=== PATIENT | male | born 1960 ===

== ENCOUNTER 2018-12-29 14:23 | Observation (INO) | payer OTHER ==
[2018-12-29] MEDS ORDERED: Sodium Chloride 0.9% 1,000 ML IV ONE ×3 (15:00→17:11)
--- NOTE | 2018-12-29 15:35 | ED PDOC ---
HPI: General Adult Time Seen by Provider: 12/29/18 14:58 Chief Complaint (Nursing): Flu-like Symptoms Chief Complaint (Provider): Fever, Cough History Per: Patient, Home Care Provider (hector [id number]) History/Exam Limitations: no limitations Onset/Duration Of Symptoms: Days Have you had recent travel within the past 21 days to any of the following countries: [place], [place], [place] or [place]?: No Current Symptoms Are (Timing): Still Present Severity: Moderate Recently: Treated By A Physician Additional Complaint(s): 58 yo M with history of asthma and HTN, presents with 3 days of fever, cough productive of white phlegm, nasal congestion, sore throat, bodyaches, headaches for 3 days. Pt saw his PMD 2 weeks ago for similar symptoms, he was prescribed what he thinks was an antibiotic, started to feel better and stopped taking the medication. His symptoms returned 3 days ago. Pt reports chest pain today that comes and goes, especially with coughing. Also states that he took Advil today at 11am, and his stomach started to hurt. Pain is all over his stomach associated with nausea. He has also had multiple episodes of loose stool today. He also continues to have a headache, fever and body aches. Pt's relative is sick with similar symptoms at home as well. Denies recent travel. Pt used his inhaler yesterday but otherwise has not had the need for it. Denies vomiting, urinary symptoms, recent travel, difficulty breathing, leg pain or swelling. PMD: Dr. Ann Past Medical History Vital Signs: Last Vital Signs Temp 101.2 F H 12/29/18 14:26 Pulse 108 H 12/29/18 14:26 Resp 16 12/29/18 14:26 BP 126/67 12/29/18 14:26 Pulse Ox 97 12/29/18 14:26 - Medical History PMH: Asthma, HTN - Surgical History Surgical History: Hernia Repair Other surgeries: foot surgery, open heart surgery - Family History Family History: States: Diabetes, Hypertension - Living Arrangements Living Arrangements: With Family - Social History Current smoker - smoking cessation education provided: No Alcohol: None Drugs: Denies - Allergies Allergies/Adverse Reactions: Allergies Allergy/AdvReac Type Severity Reaction Status Date / Time No Known Allergies Allergy Verified 12/29/18 14:29 Review of Systems Constitutional: Positive for: Fever, Chills Respiratory: Positive for: Cough Gastrointestinal: Positive for: Nausea, Abdominal Pain Physical Exam - Physical Exam Comments: GENERAL APPEARANCE: Patient is awake, alert, oriented x 3, mild obvious discomfort SKIN: Warm, dry; (-) cyanosis, (-) rash. (-) Decubitus Ulcer EYES: (-) conjunctival pallor, (-) scleral icterus, (-) conjunctival hemorrhage. ENMT: Mucous membranes _moist. TMs: (-) erythema. Airway patent: (-)trismus (-) stridor. Pharynx: (+) mild erythema, (-) exudate, Tonsils: (-) enlargement (- )exudates NECK: (-) tenderness, (-) stiffness, (-) meningismus, (-) lymphadenopathy. CHEST AND RESPIRATORY: (-) rash, (-) chest wall tenderness. Lungs: (-) rales, (- ) rhonchi, (-) wheezes, (-) rub; breath sounds equal bilaterally. HEART AND CARDIOVASCULAR: (-) irregularity; (-) murmur, (-) gallop, (-) rub. ABDOMEN AND GI: Soft; normal bowel sounds, (+) mild diffuse tenderness, (-) guarding; (-) organomegaly; (-) mass; (-) CVA tenderness. EXTREMITIES: (-) deformity; (-) cellulitis, (-) lymphangitis; (-) subungual hemorrhage; (-) edema. NEURO AND PSYCH: Mental status as above; (-) focal findings. - Laboratory Results Result Diagrams: 12/29/18 15:40 12/29/18 15:40 - ECG O2 Sat by Pulse Oximetry: 97 Medical Decision Making Medical Decision Makin:00 initial evaluation, 58yo M h/o HTN and asthma presenting with flu like symptoms, febrile and tachycardia, known sick contact, likely flu vs pneumonia * CBC, CMP, Lipase * IVF * Tylenol PO, Zofran PO * EKG * CXR * rapid flu and step * re eval 16:16 Pt's EKG showing right bundle branch block, no comparison found, reviewed by Dr. 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 Duggan, who accepts pt to be put in observation re eval pt states feeling a little better but continues with occasional chest pain when coughing pt continues to be febrile as per last results, HR is now in 80s, will recheck temp will treat with toradol and iVF Have not heard back from Dr. Anderson, do not have ekg comparison Disposition - Clinical Impression Clinical Impression: Influenza, Acute electrocardiogram changes - Patient ED Disposition Is Patient to be Admitted: Yes Doctor Will See Patient In The: Hospital Counseled Patient/Family Regarding: Studies Performed, Diagnosis - Disposition Disposition Time: 17:10 Condition: STABLE Forms: [employer] (Yakut) - Pt Status Changed To: Hospital Disposition Of: Observation - POA Present On Arrival: None
[2018-12-29 15:53] LABS: BASO % 0.6 % (0.0-2.0); EOS # 0.2 K/uL (0.0-0.7); EOS % 3.7 % (0.0-4.0); HEMOGLOBIN 13.9 g/dL (12.0-18.0); LYMPH # 0.8 K/uL (1.0-4.3); LYMPH % 12.6 % (20.0-40.0); MEAN CELL VOLUME 86.8 fl (80.0-94.0); MEAN CORPUSCULAR HEMOGLOBIN 28.6 pg (27.0-31.0); MEAN PLATELET VOLUME 7.3 fl (7.2-11.7); MONO # 0.8 K/uL (0.0-0.8); MONO % 12.6 % (0.0-10.0); NEUT # 4.2 K/uL (1.8-7.0); NEUT % 70.5 % (50.0-75.0); NRBC % 0.1 % (0.0-0.0); RBC 4.87 Mil/uL (4.40-5.90); RED CELL DISTRIBUTION WIDTH 13.4 % (11.5-14.5)
[2018-12-29 15:55] LABS: SQUAMOUS EPITHIAL 1 /hpf (0-5); URINE BACTERIA OCC (<OCC); URINE BILIRUBIN SMALL (NEGATIVE); URINE BLOOD NEGATIVE (NEGATIVE); URINE CLARITY CLOUDY (Clear); URINE COLOR AMBER (YELLOW); URINE GLUCOSE (UA) NEG (NEGATIVE); URINE LEUKOCYTE ESTERASE NEG Leu/uL (Negative); URINE PROTEIN >=500 mg/dL (NEGATIVE)
[2018-12-29 15:59] LABS: URINE UROBILINOGEN 0.2 mg/dL (0.2-1.0)
[2018-12-29 16:11] LABS: ALBUMIN 4.2 g/dL (3.5-5.0); ALT/SGPT 33 U/L (21-72); AST/SGOT 44 U/L (17-59); BLOOD UREA NITROGEN 19 mg/dl (9-20); CALCIUM 9.7 mg/dL (8.4-10.2); GFR NON-AFRICAN AMERICAN > 60; LIPASE 134 U/L (23-300)
--- NOTE | 2018-12-29 17:35 | RAD ---
Date of service: 12/29/2018 HISTORY: cough, fever COMPARISON: 01/11/2010. TECHNIQUE: Chest PA and lateral FINDINGS: LUNGS: Hyperinflation, manifestations of COPD. No active pulmonary disease. PLEURA: No significant pleural effusion identified. No pneumothorax apparent. CARDIOVASCULAR: No aortic atherosclerotic calcification present. No radiographic findings to suggest acute or significant cardiovascular disease. Incidental Finding(s): Postoperative changes related to sternotomy. No pulmonary vascular congestion. OSSEOUS STRUCTURES: No significant abnormalities. VISUALIZED UPPER ABDOMEN: Normal. OTHER FINDINGS: None. IMPRESSION: No active disease. No significant interval change compared to the prior examination(s).
[2018-12-30] MEDS: Enoxaparin 40 mg Syringe SC SCH (08:51)
[2018-12-30] MEDS: Pantoprazole 40 mg EC Tab PO SCH (08:51)
[2018-12-30] MEDS: Promethazine 12.5 mg/10 ml Syrup PO PRN (15:19)
--- NOTE | 2018-12-30 16:12 | CP.PCM.HP ---
History of Present Illness - History of Present Illness History of Present Illness: CC: Cough, fever and chest pain History of present illness A 58 yo M with history of asthma and HTN, presents with 3 days of fever, cough productive of white phlegm, nasal congestion, sore throat, bodyaches, headaches for 3 days. Pt saw his PMD 2 weeks ago for similar symptoms, he was prescribed what he thinks was an antibiotic, started to feel better and stopped taking the medication. His symptoms returned 3 days ago. Pt reports chest pain today that comes and goes, especially with coughing. Also states that he took Advil today at 11am, and his stomach started to hurt. Pain is all over his stomach associated with nausea. He has also had multiple episodes of loose stool today. He also continues to have a headache, fever and body aches. Pt's relative is sick with similar symptoms at home as well. Denies recent travel. Pt used his inhaler yesterday but otherwise has not had the need for it. Denies vomiting, urinary symptoms, recent travel, difficulty breathing, leg pain or swelling. The ER patient was found to be a positive influenza A. Present on Admission - Present on Admission Any Indicators Present on Admission: No Review of Systems - Review of Systems All systems: reviewed and no additional remarkable complaints except Review of Systems: As per HPI Past Patient History - Past Medical History & Family History Past Medical History?: Yes Past Family History: Reviewed and not pertinent - Past Social History Smoking Status: Never Smoked Alcohol: None Drugs: Denies - CARDIAC Hx Cardiac Disorders: Yes Hx Hypertension: Yes - PULMONARY Hx Respiratory Disorders: Yes Hx Asthma: Yes - NEUROLOGICAL Hx Neurological Disorder: No - HEENT Hx HEENT Problems: No - RENAL Hx Chronic Kidney Disease: No - ENDOCRINE/METABOLIC Hx Endocrine Disorders: No - HEMATOLOGICAL/ONCOLOGICAL Hx Blood Disorders: No Hx AIDS: No Hx Human Immunodeficiency Virus (HIV): No - INTEGUMENTARY Hx Dermatological Problems: No - MUSCULOSKELETAL/RHEUMATOLOGICAL Hx Musculoskeletal Disorders: No Hx Falls: No - GASTROINTESTINAL Hx Gastrointestinal Disorders: No - GENITOURINARY/GYNECOLOGICAL Hx Genitourinary Disorders: No - PSYCHIATRIC Hx Psychophysiologic Disorder: No Hx Substance Use: No - SURGICAL HISTORY Hx Surgeries: No - ANESTHESIA Hx Anesthesia: No Meds Home Medications: Home Medication List Medication Instructions Recorded Confirmed Type Oseltamivir Cap [Tamiflu Cap] 75 mg PO BID 3 Days #6 capsule 12/31/18 Rx Allergies/Adverse Reactions: Allergies Allergy/AdvReac Type Severity Reaction Status Date / Time No Known Allergies Allergy Verified 12/29/18 14:29 Physical Exam - Constitutional Appears: Well, No Acute Distress - Head Exam Head Exam: ATRAUMATIC, NORMAL INSPECTION, NORMOCEPHALIC - Eye Exam Eye Exam: EOMI, Normal appearance, PERRL Pupil Exam: NORMAL ACCOMODATION, PERRL - ENT Exam ENT Exam: Mucous Membranes Moist, Normal Exam - Neck Exam Neck exam: Positive for: Normal Inspection - Respiratory Exam Respiratory Exam: Clear to Auscultation Bilateral, NORMAL BREATHING PATTERN - Cardiovascular Exam Cardiovascular Exam: REGULAR RHYTHM, +S1, +S2 - GI/Abdominal Exam GI & Abdominal Exam: Normal Bowel Sounds, Soft. absent: Tenderness - Extremities Exam Extremities exam: Positive for: normal capillary refill, normal inspection - Back Exam Back exam: NORMAL INSPECTION - Neurological Exam Neurological exam: Alert, CN II-XII Intact, Normal Gait, Oriented x3, Reflexes Normal - Psychiatric Exam Psychiatric exam: Normal Affect, Normal Mood - Skin Skin Exam: Dry, Intact, Normal Color, Warm Results - Vital Signs Recent Vital Signs: Last Vital Signs Temp 98.2 F 12/30/18 15:57 Pulse 84 12/30/18 15:57 Resp 18 12/30/18 15:57 BP 128/80 12/30/18 15:57 Pulse Ox 96 12/30/18 15:57 - Labs Result Diagrams: 12/29/18 15:40 12/29/18 15:40 Labs: Laboratory Results - last 24 hr 12/29/18 12/29/18 16:30 22:30 Troponin I 0.0340 0.0320 - EKG Data EKG Interpreted by: Myself EKG shows normal: Sinus rhythm Rate: Tachycardia - Imaging and Cardiology Chest x-ray Status: Report reviewed by me Additional comment: Date of service: 12/29/2018 HISTORY: cough, fever COMPARISON: 01/11/2010. TECHNIQUE: Chest PA and lateral FINDINGS: LUNGS: Hyperinflation, manifestations of COPD. No active pulmonary disease. PLEURA: No significant pleural effusion identified. No pneumothorax apparent. CARDIOVASCULAR: No aortic atherosclerotic calcification present. No radiographic findings to suggest acute or significant cardiovascular disease. Incidental Finding(s): Postoperative changes related to sternotomy. No pulmonary vascular congestion. OSSEOUS STRUCTURES: No significant abnormalities. VISUALIZED UPPER ABDOMEN: Normal. OTHER FINDINGS: None. IMPRESSION: No active disease. No significant interval change compared to the prior examination(s). Assessment & Plan (1) Acute electrocardiogram changes Status: Acute Priority: Medium (2) Influenza Status: Acute Priority: Medium - Assessment and Plan (Free Text) Plan: Observe in telemetry Serial troponin and EKG Transthoracic echo Cardiology consult Tamiflu 75 mg p.o. twice daily Droplet isolation
--- NOTE | 2018-12-30 22:35 | CARD ---
APPROVED REPORT Date of service: 12/29/2018 EKG Measurement Heart [id number] CT [id number] <Conclusion> Sinus tachycardia with premature atrial complexes Right bundle branch block Abnormal ECG
[2018-12-30] MEDS ORDERED: Albuterol-Ipratrop 3 mg / 0.5 (3 ml) UD INH PRN (23:16)
[2018-12-31] MEDS: Enoxaparin 40 mg Syringe SC SCH (08:16)
[2018-12-31] MEDS: Pantoprazole 40 mg EC Tab PO SCH (08:17)
--- NOTE | 2018-12-31 09:37 | CP.PCM.CON ---
History of Present Illness - History of Present Illness History of Present Illness: 58 yo M with history of asthma and HTN, presents with 3 days of fever, cough productive of white phlegm, nasal congestion, sore throat, bodyaches, headaches for 3 days. Pt denies any cardiac Hx No chest pain, palpitations EKG: RBBB Troponin: neg PMH: HTN Asthma Past Patient History - Past Medical History & Family History Past Medical History?: Yes Past Family History: Reviewed and not pertinent - Past Social History Smoking Status: Never Smoked Alcohol: None Drugs: Denies - CARDIAC Hx Cardiac Disorders: Yes Hx Hypertension: Yes - PULMONARY Hx Respiratory Disorders: Yes Hx Asthma: Yes - NEUROLOGICAL Hx Neurological Disorder: No - HEENT Hx HEENT Problems: No - RENAL Hx Chronic Kidney Disease: No - ENDOCRINE/METABOLIC Hx Endocrine Disorders: No - HEMATOLOGICAL/ONCOLOGICAL Hx Blood Disorders: No Hx AIDS: No Hx Human Immunodeficiency Virus (HIV): No - INTEGUMENTARY Hx Dermatological Problems: No - MUSCULOSKELETAL/RHEUMATOLOGICAL Hx Musculoskeletal Disorders: No Hx Falls: No - GASTROINTESTINAL Hx Gastrointestinal Disorders: No - GENITOURINARY/GYNECOLOGICAL Hx Genitourinary Disorders: No - PSYCHIATRIC Hx Psychophysiologic Disorder: No Hx Substance Use: No - SURGICAL HISTORY Hx Surgeries: No - ANESTHESIA Hx Anesthesia: No Meds Allergies/Adverse Reactions: Allergies Allergy/AdvReac Type Severity Reaction Status Date / Time No Known Allergies Allergy Verified 12/29/18 14:29 - Medications Medications: Current Medications Acetaminophen (Tylenol 325mg Tab) 650 mg PO Q6 PRN PRN Reason: Headache Last Admin: 12/31/18 08:14 Dose: 650 mg Albuterol/Ipratropium (Duoneb 3 Mg/0.5 Mg (3 Ml) Ud) 3 ml INH RQ6 PRN PRN Reason: Shortness of Breath Amlodipine Besylate (Norvasc) 5 mg PO DAILY [facility] Last Admin: 12/31/18 08:17 Dose: 5 mg Ascorbic Acid (Vitamin C 500 Mg Tab) 500 mg PO DAILY [facility] Last Admin: 12/31/18 08:18 Dose: 500 mg Aspirin (Ecotrin) 81 mg PO DAILY [facility] Last Admin: 12/31/18 08:16 Dose: 81 mg Enoxaparin Sodium (Lovenox) 40 mg SC DAILY [facility]; Protocol Last Admin: 12/31/18 08:16 Dose: 40 mg Hydrochlorothiazide (Microzide) 12.5 mg PO DAILY [facility] Last Admin: 12/31/18 08:17 Dose: 12.5 mg Losartan Potassium (Cozaar) 100 mg PO DAILY [facility] Last Admin: 12/31/18 08:15 Dose: 100 mg Montelukast Sodium (Singulair) 10 mg PO DAILY [facility] Last Admin: 12/31/18 08:18 Dose: 10 mg Oseltamivir Phosphate (Tamiflu Cap) 75 mg PO BID [facility]; Protocol Last Admin: 12/31/18 08:18 Dose: 75 mg Pantoprazole Sodium (Protonix Ec Tab) 40 mg PO DAILY [facility] Last Admin: 12/31/18 08:17 Dose: 40 mg Promethazine HCl (Phenergan Syrup) 12.5 mg PO Q6 PRN PRN Reason: Cough Last Admin: 12/30/18 15:19 Dose: 12.5 mg Vitamin E (Vitamin E 400 Units Cap) 400 intlu PO DAILY [facility] Last Admin: 12/31/18 08:18 Dose: 400 intlu Physical Exam - Constitutional Appears: Well - Head Exam Head Exam: NORMAL INSPECTION - Eye Exam Eye Exam: Normal appearance - ENT Exam ENT Exam: Normal Exam - Respiratory Exam Respiratory Exam: NORMAL BREATHING PATTERN - Cardiovascular Exam Cardiovascular Exam: REGULAR RHYTHM Results - Vital Signs Recent Vital Signs: Last Vital Signs Temp 98.3 F 12/31/18 08:43 Pulse 98 H 12/31/18 08:43 Resp 18 12/31/18 08:43 BP 125/89 12/31/18 08:43 Pulse Ox 95 12/31/18 08:43 - Labs Result Diagrams: 12/29/18 15:40 12/29/18 15:40 Assessment & Plan (1) Right bundle branch block (RBBB) on electrocardiogram (ECG) Assessment and Plan: RBBB should not cause any problems in this patient Status: Acute (2) Influenza Status: Acute Priority: Medium
[2018-12-31] MEDS: Promethazine 12.5 mg/10 ml Syrup PO PRN (10:51)
[2018-12-31 16:01] VITALS: BP 177/76; RESP 20; TEMP 98.9; O2SAT 100
[2018-12-31] MEDS ORDERED: Albuterol HFA 90 mcg/actuation (8 g) IH PRN (17:55)
[2018-12-31 18:43] VITALS: PULSE 82
--- NOTE | 2019-01-02 08:16 | CP.PCM.DIS ---
Provider - Provider Date of Admission: 12/29/18 16:57 Attending physician: Coby Duggan MD Consults: 12/30/18 12:12 Cardiology Consult Routine Comment: Consulting Provider: Josemanuel Sosa V Consulting Physician: Josemanuel Sosa V Reason for Consult: rbbb on ekg Time Spent in preparation of Discharge (in minutes): 225 Diagnosis - Discharge Diagnosis (1) Acute electrocardiogram changes Status: Acute Priority: Medium Comment: ACS ruled out (2) Influenza Status: Acute Priority: Medium (3) Atypical chest pain Status: Acute Priority: Low Hospital Course - Lab Results Lab Results: Micro Results 12/29/18 15:40 Throat Group A Strep Throat Culture - Final NO BETA STREP GROUP A ISOLATED. Most Recent Lab Values WBC 6.0 K/uL (4.8-10.8) 12/29/18 15:40 RBC 4.87 Mil/uL (4.40-5.90) 12/29/18 15:40 Hgb 13.9 g/dL (12.0-18.0) 12/29/18 15:40 Hct 42.2 % (35.0-51.0) 12/29/18 15:40 MCV 86.8 fl (80.0-94.0) 12/29/18 15:40 MCH 28.6 pg (27.0-31.0) 12/29/18 15:40 MCHC 33.0 g/dL (33.0-37.0) 12/29/18 15:40 RDW 13.4 % (11.5-14.5) 12/29/18 15:40 Plt Count 218 K/uL (130-400) 12/29/18 15:40 MPV 7.3 fl (7.2-11.7) 12/29/18 15:40 Neut % (Auto) 70.5 % (50.0-75.0) 12/29/18 15:40 Lymph % (Auto) 12.6 % (20.0-40.0) L 12/29/18 15:40 [place] % (Auto) 12.6 % (0.0-10.0) H 12/29/18 15:40 Eos % (Auto) 3.7 % (0.0-4.0) 12/29/18 15:40 Baso % (Auto) 0.6 % (0.0-2.0) 12/29/18 15:40 Neut # (Auto) 4.2 K/uL (1.8-7.0) 12/29/18 15:40 Lymph # (Auto) 0.8 K/uL (1.0-4.3) L 12/29/18 15:40 [place] # (Auto) 0.8 K/uL (0.0-0.8) 12/29/18 15:40 Eos # (Auto) 0.2 K/uL (0.0-0.7) 12/29/18 15:40 Baso # (Auto) 0.0 K/uL (0.0-0.2) 12/29/18 15:40 Sodium 140 mmol/l (132-148) 12/29/18 15:40 Potassium 4.4 MMOL/L (3.6-5.0) 12/29/18 15:40 Chloride 102 mmol/L (98-107) 12/29/18 15:40 Carbon Dioxide 28 mmol/L (22-30) 12/29/18 15:40 Anion Gap 14 (10-20) 12/29/18 15:40 BUN 19 mg/dl (9-20) 12/29/18 15:40 Creatinine 1.0 mg/dl (0.8-1.5) 12/29/18 15:40 Est GFR ( Amer) > 60 12/29/18 15:40 Est GFR (Non-Af Amer) > 60 12/29/18 15:40 Random Glucose 117 mg/dL (75-110) H 12/29/18 15:40 Calcium 9.7 mg/dL (8.4-10.2) 12/29/18 15:40 Total Bilirubin 0.4 mg/dl (0.2-1.3) 12/29/18 15:40 AST 44 U/L (17-59) 12/29/18 15:40 ALT 33 U/L (21-72) 12/29/18 15:40 Alkaline Phosphatase 66 U/L (38-126) 12/29/18 15:40 Troponin I 0.0310 ng/mL (0.00-0.120) 12/31/18 13:30 Total Protein 8.2 G/DL (6.3-8.2) 12/29/18 15:40 Albumin 4.2 g/dL (3.5-5.0) 12/29/18 15:40 Globulin 4.0 gm/dL (2.2-3.9) H 12/29/18 15:40 Albumin/Globulin Ratio 1.0 (1.0-2.1) 12/29/18 15:40 Lipase 134 U/L (23-300) 12/29/18 15:40 Urine Color Amanda (YELLOW) 12/29/18 15:40 Urine Clarity Cloudy (Clear) 12/29/18 15:40 Urine pH 6.0 (5.0-8.0) 12/29/18 15:40 Ur Specific [place] 1.028 (1.003-1.030) 12/29/18 15:40 Urine Protein >=500 mg/dL (NEGATIVE) 12/29/18 15:40 Urine Glucose (UA) Neg mg/dL (NEGATIVE) 12/29/18 15:40 Urine Ketones Negative mg/dL (NEGATIVE) 12/29/18 15:40 Urine Blood Negative (NEGATIVE) 12/29/18 15:40 Urine Nitrate Negative (NEGATIVE) 12/29/18 15:40 Urine Bilirubin Small (NEGATIVE) 12/29/18 15:40 Urine Urobilinogen 0.2 mg/dL (0.2-1.0) 12/29/18 15:40 Ur Leukocyte Esterase Neg Syd/uL (Negative) 12/29/18 15:40 Urine RBC (Auto) 3 /hpf (0-3) 12/29/18 15:40 Urine Microscopic WBC 2 /hpf (0-5) 12/29/18 15:40 Ur Squamous Epith Cells 1 /hpf (0-5) 12/29/18 15:40 Urine Bacteria Occ (<OCC) H 12/29/18 15:40 Influenza Typ A,B (EIA) Pos for influenza a (NEGATIVE) H 12/29/18 15:40 Grp A Beta Strep Ag Negative (NEGATIVE) 12/29/18 15:40 Discharge Exam - Head Exam Head Exam: NORMAL INSPECTION Discharge Plan - Discharge Medications Prescriptions: Oseltamivir Cap [Tamiflu Cap] 75 mg PO BID 3 Days #6 capsule - Follow Up Plan Condition: STABLE Disposition: HOME/ ROUTINE Instructions: Flu, Adult (DC), Heart Block, Adult (DC) Additional Instructions: Follow up with Primary doctor in 1 week Follow up with Cardiology in 1 week Continue Tamiflu for 3 days
== END 2018-12-31 18:30 | disposition home or self-care (01) ==
LOC: H.ER 14:23 → H.ERHOLD 16:57 → H.TEL 12-30 00:28
PROVIDERS: ADMIT Internal Medicine; ATTEND Internal Medicine
DX: J10.1 Influenza due to other identified influenza virus with other respiratory manifestations (principal); R07.89 Other chest pain; J45.909 Unspecified asthma, uncomplicated; I10 Essential (primary) hypertension; I45.10 Unspecified right bundle-branch block
CPT/HCPCS: 36415; 71046; 80053; 81003; 83690; 84484; 85025; 87070; 87430; 87804; 93005; 96361; 96372; 96374; 96375; 96376; 99285; G0378; J1650; J1885; J2405; J7030; J7040